=== PATIENT | male | born 1995 | race Hispanic/Latino ===

== ENCOUNTER 2017-01-20 00:48 | Emergency (ER) | payer OTHER ==
[2017-01-20] MEDS ORDERED: Ibuprofen 800 MG TAB ONE (01:09)
--- NOTE | 2017-01-20 10:25 | RAD ---
4 VIEWS RIGHT KNEE: Date: 01/20/17 HISTORY: Injury. Pain. COMPARISON: None. FINDINGS: Joint spaces are preserved. No fracture or malalignment. No significant joint effusion. IMPRESSION: No fracture. POS: [facility]
== END 2017-01-20 01:30 | disposition home or self-care (01) ==
LOC: NAV ERS 00:48
DX: S80.01XA Contusion of right knee, initial encounter (principal); F17.290 Nicotine dependence, other tobacco product, uncomplicated; V49.60XA Unspecified car occupant injured in collision with unspecified motor vehicles in traffic accident, initial encounter